=== PATIENT | female | born 2000 | race Caucasian/White ===

== ENCOUNTER 2024-10-17 23:01 | Emergency (ER) | payer MEDICAID, SELFPAY ==
[2024-10-17 23:25] VITALS: BP 119/79; PULSE 87; RESP 18; TEMP 36.9; O2SAT 99; BMI 41.0
--- NOTE | 2024-10-18 00:15 | PD.EDADULT ---
ED General RME/HPI General Chief complaint: Ear Stated complaint: FB LEFT EAR Time Seen by Provider: 10/17/24 23:17 Arrival date/time: 10/17/24 23:01 RME / HPI RME / HPI narrative: 24-year-old female presents to the ED with a complaint of a Q-tip piece of cotton in her ear after she attempted to clean her ears earlier today. She denies any pain or discharge. She also denies any recent illness with fever, chills, cough, ear pain or sore throat. Related Data Allergies Allergy/AdvReac Type Severity Reaction Status Date / Time No Known Allergies Allergy Verified 10/17/24 23:03 Review of Systems Review of Systems Systems Reviewed: All systems reviewed, normal except as documented Past Medical History Social History SMOKING STATUS: Never smoker ED Exam Narrative Physical exam: 24-year-old female, no acute distress. Lungs are clear, no respiratory distress noted. Right ear normal, left canal with cotton tip foreign body noted. Course Course Course Narrative: Cotton tip successfully removed with alligator forceps from the left ear canal. No erythema or swelling is noted to the left ear canal. Patient was discharged home in stable and improved condition. Quality Measures none Vital Signs Vital signs: Vital Signs Temperature 98.5 F 10/17/24 23:25 Pulse Rate 87 10/17/24 23:25 Respiratory Rate 18 10/17/24 23:25 Blood Pressure 119/79 10/17/24 23:25 Pulse Oximetry (%) 99 10/17/24 23:25 Oxygen Delivery Method Room Air 10/17/24 23:25 Discharge Plan Plan Patient Disposition: HOME (Self Care) Discharge Disposition comment: Stable and improved Problem List Clinical Impression: Ear foreign body Patient/Caregiver Discharge Instructions Education Materials: ED EAR CANAL Foreign Body Additional Instructions: Follow-up with your primary care physician in 24 to 48 hours. Return to the ED for any new or worsening symptoms. Print Language: Gambian Stand Alone Forms: [facility] Award Info., Patient Portal Info Letter PA/HEAVY CLEANER Supervising Physician PA/HEAVY CLEANER Supervising Physician: Dr. Zepeda [facility] Narrative [facility] hospital course: 24-year-old female presented with a complaint of a left Q-tip cotton foreign body retained In the left ear canal or cleaning her ears. Exam revealed cotton from Q-tip retained within the canal. Cotton tip successfully removed with alligator forceps. Patient tolerated procedure well. No erythema or Swelling of the ear canal noted. Patient was discharged home in improved condition. Clinical Information Provided by patient Medical Records Reviewed None Meds/Rx Considered, not Ordered None Labs/Rad/Tests considered, not Ordered None Chronic Illness/Social Conditions which may negatively complicate care or outcome(s)-explain: None or not applicable EKG EKG not done Lab Interpretation Labs: none Imaging Imaging interpretation: none Medication Administration(s) none Diagnosis Most likely dx, and/or detailed dx discussion: Cotton tip foreign body left ear. Dispositon Disposition: Discharge Home
== END 2024-10-18 00:35 | disposition home or self-care (01) ==
LOC: SERX 10-18 00:38
PROVIDERS: Emergency Provider Emergency Medicine; PCP Family Medicine
DX: T16.2XXA Foreign body in left ear, initial encounter (principal); W44.8XXA Other foreign body entering into or through a natural orifice, initial encounter
CPT/HCPCS: 99281